=== PATIENT | female | born 1930 | race Caucasian/White ===

== ENCOUNTER 2020-04-06 18:40 | Emergency (ER) | payer MEDICARE ==
[2020-04-06 18:56] VITALS: RESP 16
--- NOTE | 2020-04-06 19:06 | ED ---
Back Pain HPI - General Chief Complaint: Back Pain/Injury Stated Complaint: slipped down 2 stairs Time Seen by Provider: 04/06/20 18:58 Source: patient, family, RN notes reviewed, old records reviewed Limitations: no limitations - History of Present Illness Initial Comments: This is an 89-year-old female DF for evaluation patient Dese for evaluation of possible falls back pain severe back pain. Patient is able to ambulate. No loss of bowel or bladder no other injuries noted. No recent travel history or sick contacts. No fever cough or congestion, no chest pain or abdominal pain MD Complaint: back pain -: hour(s) Similar Symptoms Previously: No Place: home Radiation: none Severity: moderate Severity scale (1-10): 3 Quality: aching Consistency: constant Improves With: none Context: fall Associated Symptoms: denies other symptoms - Related Data Allergies Allergy/AdvReac Type Severity Reaction Status Date / Time No Known Allergies Allergy Verified 04/06/20 18:56 Review of Systems ROS Statement: Those systems with pertinent positive or pertinent negative responses have been documented in the HPI. ROS Other: All systems not noted in ROS Statement are negative. 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 Absent: scleral icterus, conjunctival injection, periorbital swelling ENT exam: Present: normal exam, mucous membranes moist Neck exam: Present: normal inspection. Absent: tenderness, meningismus, lymphadenopathy Respiratory exam: Present: normal lung sounds bilaterally. Absent: respiratory distress, wheezes, rales, rhonchi, stridor Cardiovascular Exam: Present: regular rate, normal rhythm, normal heart sounds. Absent: systolic murmur, diastolic murmur, rubs, gallop, clicks GI/Abdominal exam: Present: soft, normal bowel sounds. Absent: distended, tenderness, guarding, rebound, rigid Extremities exam: Present: normal inspection, full ROM, normal capillary refill. Absent: tenderness, pedal edema, joint swelling, calf tenderness Back exam: Present: normal inspection Neurological exam: Present: alert, oriented X3, CN II-XII intact Psychiatric exam: Present: normal affect, normal mood Skin exam: Present: warm, dry, intact, normal color. Absent: rash Course Vital Signs 04/06/20 18:50 Temperature 98.4 F Pulse Rate 102 H Respiratory 16 Rate Blood Pressure 155/83 O2 Sat by Pulse 98 Oximetry - Reevaluation(s) Reevaluation #1: 04/06/20 20:00 Medical record is reviewed Reevaluation #2: 04/06/20 20:00 patient has pain control Medical Decision Making - Medical Decision Making 89 female DF status post trip and fall does have contusion injury no other acute disease no fractures. Patient can be discharged home - Radiology Data Radiology results: report reviewed (CT lumbar spine and sacrum is negative for traumatic injury), image reviewed Disposition Clinical Impression: Mechanical back pain, Mid back pain, Fall Disposition: ADMITTED IP TO THIS [facility] Condition: Good Instructions (If sedation given, give patient instructions): Acute Low Back Pain (ED) Is patient prescribed a controlled substance at d/c from ED?: No Referrals: Jean-Paul Gonzalez MD [Primary Care Provider] - 1-2 days
[2020-04-06] MEDS ORDERED: HYDROcodone/APAP 5-325MG 1 EACH TAB PO STA (19:15)
--- NOTE | 2020-04-06 19:53 | CT ---
EXAMINATION TYPE: CT sacrum wo con DATE OF EXAM: 04/06/2020 COMPARISON: None HISTORY: Fall, back pain. CT DLP: 1009.7 mGycm Automated exposure control for dose reduction was used. Images were obtained from the level of L5 through the tip of the coccyx with no contrast. Vertebra have normal alignment. Sacroiliac joints appear intact. I see no evidence of fracture of the sacrum and coccyx. There is no evidence of a pelvic mass. There is no free fluid in the pelvis. IMPRESSION: No evidence of fracture of the sacrum and coccyx.
--- NOTE | 2020-04-06 19:58 | CT ---
EXAMINATION TYPE: CT lumbar spine wo con DATE OF EXAM: 04/06/2020 COMPARISON: None HISTORY: Fall, back pain. CT DLP: 1009.7 mGycm Automated exposure control for dose reduction was used. Multiple axial sections were obtained from the level of T11-S1 vertebra without contrast. There is disc space narrowing throughout the lumbar spine. There is spurring of the endplates. There is mild anterior wedging of L1 vertebra with 20% loss of height. There is biconcave deformity. Fract ure appears old. There is slight lumbar levoscoliosis. Sacroiliac joints appear intact. There is no l umbar paraspinal mass. There is moderate spinal stenosis at L3-4 due to facet arthropathy. IMPRESSION: Changes of osteoporosis and osteomalacia. Mild compression deformity of L1 vertebra appears old. No a cute fracture seen. Spinal stenosis at L3-4.
[2020-04-06 20:32] VITALS: BP 130/88; PULSE 94; TEMP 98.1
[2020-04-06] MEDS ORDERED: ACET/COD 300 MG/30 MG STARTER PACK 6 TAB BTL PO STA (20:32)
== END 2020-04-06 20:37 | disposition other institution (70) ==
LOC: EC 18:40
DX: M54.6 Pain in thoracic spine (principal); W10.9XXA Fall (on) (from) unspecified stairs and steps, initial encounter; Y92.009 Unspecified place in unspecified non-institutional (private) residence as the place of occurrence of the external cause
CPT/HCPCS: 72131; 72192; 99285